=== PATIENT | female | born 1985 | race Caucasian/White ===

== ENCOUNTER 2016-11-24 06:13 | Day surgery (SDC) | payer BC ==
[~2016-11-24] VITALS: Ht 170.2 cm; Wt 77.3 kg
[2016-11-24 07:08] LABS: HEMATOCRIT 40.5 % (37.0-47.0); HEMOGLOBIN 13.7 g/dl (12.5-16.0); MEAN CELL VOLUME 90 fl (80.0-100.0); MEAN CORPUSCULAR HEMOGLOBIN 30 pg (27.0-31.0); MEAN CORPUSCULAR HGB CONC 34 g/dl (33.0-37.0); MEAN PLATELET VOLUME 9.7 fl (7.4-10.4); PLATELET COUNT 209 K/mm3 (130-400); REDCELL DISTRIBUTION WIDTH-CV 12.2 % (11.5-14.5); WHITE BLOOD COUNT 16.5 K/mm3 (4.8-10.8)
[2016-11-24 07:17] LABS: ADJUSTED CALCIUM 8.7 mg/dL (8.4-10.2); ALANINE AMINOTRANSFERASE 35 U/L (9-52); ALBUMIN 4.6 gm/dL (3.5-5.0); ALKALINE PHOSPHATASE 78 U/L (50-136); ANION GAP 14 mmol/L (7-16); BLOOD UREA NITROGEN 13 mg/dL (7-17); CALCIUM 9.2 mg/dL (8.4-10.2); CARBON DIOXIDE 25 mmol/L (22-30); CHLORIDE 100 mmol/L (98-107); CREATININE, serum 0.66 mg/dL (0.52-1.25); GLUCOSE 130 mg/dL (74-106); LIPASE 32 U/L (23-300); POTASSIUM 3.8 mmol/L (3.4-5.0); SODIUM 139 mmol/L (137-145); TOTAL PROTEIN 8.1 gm/dL (6.4-8.2)
[2016-11-24 07:33] LABS: ADD PATHOLOGY DIFF REVIEW NO
[2016-11-24 07:44] LABS: BAND 12 % (0-10); NEUTROPHILS 83 % (42.0-75.2); PLATELET ESTIMATE NORMAL (NORMAL); TOTAL CELLS COUNTED 100
[2016-11-24 08:39] LABS: PH 7 (5-8); URINE APPEARANCE Clear; URINE BACTERIA Rare /hpf; URINE BILIRUBIN Negative (NEGATIVE); URINE BLOOD Negative (NEGATIVE); URINE COLOR Yellow; URINE GLUCOSE Negative (NEGATIVE); URINE KETONE Trace (NEGATIVE); URINE RBC 0-2 /hpf; URINE UROBILINOGEN Negative (NEGATIVE); URINE WBC 0-2 /hpf
[2016-11-24 11:45] VITALS: BP 108/51; PULSE 90
[2016-11-24 12:00] VITALS: BP 101/86; PULSE 61
[2016-11-24 12:30] VITALS: BP 116/58; PULSE 83
[2016-11-24 13:00] VITALS: BP 95/58; PULSE 78
[2016-11-24 13:30] VITALS: BP 111/73; PULSE 74
[2016-11-24 14:09] VITALS: BP 111/73; PULSE 71; TEMP 98.7
== END 2016-11-24 16:00 | disposition home or self-care (01) ==
LOC: COL.ER 06:13 → SDCO 08:39 → SURG 09:19 → SDCO 16:00
PROVIDERS: Family Medicine
DX: K35.80 Unspecified acute appendicitis (principal)
CPT/HCPCS: OP; J0696; J1100; J1170; J1885; J2250; J2405; J2704; J3010; J7030; Q9967